=== PATIENT | female | born 1990 ===

== ENCOUNTER 2024-07-05 12:47 | Outpatient (CLI) | payer OTHER | END 2024-07-05 13:22 | disposition home or self-care (01) | LOC: NST 12:47 | PROVIDERS: ATTEND Obstetrics & Gynecology Maternal & Fetal Medicine | DX: Z3A.38 38 weeks gestation of pregnancy (principal) ==

== ENCOUNTER 2024-07-05 13:53 | Inpatient (IN) | payer OTHER ==
[~2024-07-05] VITALS: Ht 160 cm; Wt 72.6 kg
[2024-07-14 17:39] VITALS: BP 119/76
[2024-07-14] MEDS ORDERED: PRENATA CHEWAB1 EACH PO (17:55)
[2024-07-14] MEDS ORDERED: RINGERS SOLUTION,LACTATED 1,000 ML IV SCH (18:15)
[2024-07-14] MEDS ORDERED: ERYTHROMYCIN BASE OPHT 1GM EACH TUBE OP ONE (18:15)
[2024-07-14] MEDS ORDERED: OXYTOCIN 20 UNITS/1000ML RL PIGGYBAG IV ONE (18:16)
[2024-07-14] MEDS ORDERED: CHLORHEXIDINE GLUCONATE 120 ML BOTTLE TOP ONE (18:16)
[2024-07-14] MEDS ORDERED: LIDOCAINE HCL 1% 10ML VIAL ONE ×2 (18:16)
[2024-07-14 18:44] LABS: HEMOGLOBIN 11.2 g/dL (12.0-15.00); PLATELET COUNT 360 K/uL (150-450); RED CELL DISTRIBUTION WIDTH 14.2 % (11.5-14.5)
[2024-07-14] MEDS ORDERED: ONDANSETRON HCL 2 MG/ML VIAL ONE (18:50)
[2024-07-14 19:10] LABS: INR < 0.93; PARTIAL THROMBOPLASTIN TIME 24.9 SECONDS (22.0-34.0); PROTHROMBIN TIME 10.1 SECONDS (9.0-11.5)
[2024-07-14 19:24] LABS: ALBUMIN 2.7 gm/dL (3.4-5.0); BILIRUBIN TOTAL 0.45 mg/dL (0.3-1.2); CALCIUM 8.4 mg/dL (8.5-10.1); CREATININE SERUM 0.58 mg/dL (0.55-1.02); GLOBULINA 3.4 G/DL (2.4-3.5); POTASSIUM 4.22 mEq/L (3.5-5.1); TOTAL PROTEIN 6.1 gm/dL (6.4-8.2)
[2024-07-14] MEDS ORDERED: OXYTOCIN 20 UNITS/500ML RL PIGGYBAG IV ONE (20:39)
[2024-07-14] MEDS ORDERED: ONDANSETRON HCL 2 MG/ML VIAL IV SCH (21:00)
[2024-07-14] MEDS ORDERED: OXYTOCIN 20 UNITS/500ML RL PIGGYBAG IV SCH (21:15)
[2024-07-14 23:26] VITALS: BP 118/84
[2024-07-15] MEDS ORDERED: KETOROLAC TROMETHAMINE 10 MG TABLET PO SCH (01:00)
[2024-07-15] MEDS ORDERED: CHLORHEXIDINE GLUCONATE 120 ML BOTTLE TOP SCH (01:00)
[2024-07-15] MEDS ORDERED: OXYTOCIN 1,000 ML IV SCH (01:00)
[2024-07-15] MEDS ORDERED: DOCUSATE SODIUM 100MG CAP PO SCH (01:00)
[2024-07-15 03:50] VITALS: BP 117/57
[2024-07-15] MEDS ORDERED: OxyCODONE HCL 5 MG TABLET (ROXICODONE) PO SCH (04:00)
[2024-07-15 04:46] VITALS: BP 106/66
[2024-07-15 09:00] VITALS: BP 91/68
[2024-07-15 16:00] VITALS: BP 114/77
[2024-07-16] VITALS: BP 104/65
[2024-07-16 09:23] VITALS: BP 119/76
== END 2024-07-16 14:02 | disposition home or self-care (01) | DRG 807 ==
LOC: EDUNIT# 14:00 → OB/GYN 07-14 14:00 → LDR 07-14 17:51 → OB/GYN 07-14 17:51
PROVIDERS: Obstetrics & Gynecology Maternal & Fetal Medicine; ADMIT Obstetrics & Gynecology; ATTEND Obstetrics & Gynecology
PROC: 10D07Z6 Extraction of Products of Conception, Vacuum, Via Natural or Artificial Opening (ICD-10-PCS; principal; 2024-07-14)
PROC: 0KQM0ZZ Repair Perineum Muscle, Open Approach (ICD-10-PCS; 2024-07-14)
PROC: 0W8NXZZ Division of Female Perineum, External Approach (ICD-10-PCS; 2024-07-14)
PROC: 4A1HXCZ Monitoring of Products of Conception, Cardiac Rate, External Approach (ICD-10-PCS; 2024-07-14)
DX: O70.1 Second degree perineal laceration during delivery (principal); Z37.0 Single live birth; O66.5 Attempted application of vacuum extractor and forceps; Z3A.39 39 weeks gestation of pregnancy

== ENCOUNTER 2024-07-12 16:00 | Outpatient (CLI) | payer OTHER | END 2024-07-12 16:54 | disposition home or self-care (01) | LOC: NST 16:00 | PROVIDERS: ATTEND Obstetrics & Gynecology | DX: Z34.83 Encounter for supervision of other normal pregnancy, third trimester (principal) ==

== ENCOUNTER 2024-07-14 10:36 | Outpatient (CLI) | payer OTHER ==
[2024-07-14] MEDS ORDERED: PRENATA CHEWAB1 EACH PO (17:55)
== END 2024-07-14 11:28 | disposition home or self-care (01) ==
LOC: NST 10:36
PROVIDERS: ATTEND Obstetrics & Gynecology Maternal & Fetal Medicine
DX: Z34.83 Encounter for supervision of other normal pregnancy, third trimester (principal)